=== PATIENT | female | born 1965 | race Caucasian/White ===

== ENCOUNTER → 2023-09-13 | Emergency (ER) | payer BC ==
[~2023-09-13] MED LIST: FAMOTIDINE 20 MG/2 ML VIAL IV ONE; KETOROLAC 30 MG/ML INJ ONE; NA CHLORIDE 0.9% 1,000 ML ONE; ONDANSETRON 4 MG/2 ML VIAL ONE
--- NOTE | 2023-09-13 17:29 | RAD REPORT ---
EXAM DESCRIPTION: US - Abdomen Exam Limited - 09/13/2023 5:06 pm CLINICAL HISTORY: ABD PAIN COMPARISON: No comparisons FINDINGS: The gallbladder demonstrates no gallstones. No pericholecystic fluid or gallbladder wall t hickening. The common bile duct is normal measuring 6 mm. The liver demonstrates no findings of intrahepatic biliary dilatation. IMPRESSION: Unremarkable examination.
[2023-09-13 17:41] LABS: Absolute Basophils 0.1 K/uL (0-0.5); Absolute Eosinophils 0.4 K/uL (0-0.5); Absolute Lymphocytes (CBC) 1.8 K/uL (0.7-4.9); Absolute Monocytes 0.6 K/uL (0.1-1.3); Absolute Neutrophil 3.6 K/uL (1.8-8.0); Basophils % 1.3 % (0-1.3); Eosinophils % 6.3 % (0-4.4); Hematocrit 35.2 % (36.0-45.0); Hemoglobin 12.1 g/dL (12.0-15.0); MCH 30.5 pg (27.0-35.0); MCHC 34.4 g/dL (32.0-36.0); MCV 88.6 fL (80-100); MPV 9.2 fL (7.6-11.3); Monocytes % 9.1 % (3.3-12.3); Neutrophils % 55.3 % (41.7-73.7); Nucleated Red Blood Cells % 0.1 % (0-0); Platelets 256 thou/uL (152-406); RBC Red Blood Cell Count 3.97 M/uL (3.86-4.86)
[2023-09-13 17:54] LABS: Albumin 3.6 g/dL (3.4-5.0); Anion Gap 11.4 mEq/L (5.0-15.0); Bilirubin Total 0.6 mg/dL (0.2-1.0); Globulin 3.5 g/dL (2.3-3.5); Potassium 3.4 mEq/L (3.5-5.1); Protein, Total 7.1 g/dL (6.4-8.2)
--- NOTE | 2023-09-13 18:46 | EDPHYS ---
Physician Documentation [facility] Name: Rosa Adan Age: 58 yrs Sex: Female : 1965 Arrival Date: 09/13/2023 Time: 16:14 Bed 16 Private MD: Herminia Torres ED Physician Live Doherty HPI: 09/12 20:07 This 58 yrs old Female presents to ER via Ambulatory with complaints of Abdominal Pain, kb Nausea. 20:07 Patient is a 58-year-old female who presents for right upper quadrant pain, diarrhea kb and nausea after eating for the last 2 weeks. Denies fever. States she has no pain at this time, it only comes on after eating.. Historical: - Allergies: 16:25 No Known Allergies; iw - PMHx: 16:25 Hypertensive disorder; Hypercholesterolemia; Asthma; iw - PSHx: 16:25 Gastric bypass; iw - Immunization history:: Adult Immunizations. - Social history:: Smoking status: Patient denies any tobacco usage or history of. ROS: 20:06 Constitutional: As per HPI kb Exam: 20:06 Constitutional: This is a well developed, well nourished patient who is awake, alert, kb and in no acute distress. Head/Face: Normocephalic, atraumatic. ENT: Moist Mucous membranes Cardiovascular: Regular rate Respiratory: Respirations even and unlabored. No increased work of breathing. Talking in full sentences Abdomen/GI: Soft, non-tender. No distention Skin: Warm, dry with normal turgor. Normal color. MS/ Extremity: Pulses equal, no cyanosis. Neurovascular intact. Full, normal range of motion. Neuro: Awake and alert, GCS 15, oriented to person, place, time, and situation. Moves all extremities. Normal gait. Vital Signs: 16:27 BP 155 / 92; Pulse 79; Resp 16; Temp 97.5; Pulse Ox 99% on R/A; Weight 79.38 kg; Pain iw 7/10; 17:30 BP 162 / 78; Pulse 71; Resp 16; Pulse Ox 100% on R/A; me1 18:15 BP 154 / 72; Pulse 62; Resp 16; Pulse Ox 100% on R/A; me1 18:56 BP 156 / 82; Pulse 61; Resp 16; Pulse Ox 100% on R/A; me1 16:27 Pain Scale: Adult iw MDM: 16:21 Patient medically screened. kb 20:06 Differential diagnosis: cholecystitis, Cholelithiasis, gastroesophageal reflux disease, kb non-specific abd pain, pancreatitis. Data reviewed: vital signs, nurses notes. Test considered but Not performed: CT: CT scan of the abdomen considered but patient has no abdominal tenderness, white blood cell count normal, afebrile, nontoxic in appearance. 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 09/12 16:25 Order name: CBC with Diff; Complete Time: 17:54 kb 09/12 16:25 Order name: CMP; Complete Time: 17:54 kb 09/12 16:25 Order name: Lipase; Complete Time: 17:54 kb 09/12 16:25 Order name: Abdomen Limited US; Complete Time: 17:30 kb 09/12 16:25 Order name: IV Saline Lock; Complete Time: 17:53 kb 09/12 16:25 Order name: Labs collected and sent; Complete Time: 17:20 kb Administered Medications: 17:52 Drug: NS 0.9% IV 1000 ml IV at 1 bolus Per protocol; 1000 mL bolus Route: IV; Rate: 1 me1 bolus; Site: right antecubital; 18:34 Follow up: Response: No adverse reaction; IV Status: Completed infusion; IV Intake: me1 1000ml 17:52 Drug: Famotidine IVP 20 mg IVP once; dilute with 10 mL 0.9% NaCl; give over 2 minutes me1 Route: IVP; Site: right antecubital; 18:34 Follow up: Response: No adverse reaction me1 17:52 Drug: TORadol - Ketorolac IVP 15 mg IVP once Route: IVP; Site: right antecubital; me1 18:35 Follow up: Response: No adverse reaction; Pain is decreased me1 17:52 Drug: Ondansetron IVP 4 mg IVP once; over 2 minutes Route: IVP; Site: right antecubital;me1 18:35 Follow up: Response: No adverse reaction; Nausea is decreased me1 Disposition Summary: 09/13/23 18:46 Discharge Ordered Notes: Location: Home kb Condition: Stable kb Diagnosis - Upper abdominal pain, unspecified kb Followup: kb - With: Emergency Department - When: As needed - Reason: Worsening of condition Followup: kb - With: Private Physician - When: 2 - 3 days - Reason: Recheck today's complaints, Continuance of care, Re-evaluation by your physician Discharge Instructions: - Discharge Summary Sheet kb - Biliary Colic, Adult kb - Abdominal Pain, Adult, [id number] kb Forms: - Medication Reconciliation Form kb - Thank You Letter kb - Antibiotic Education kb - Prescription Opioid Use kb - Patient Portal Instructions kb - Leadership Thank You Letter kb Prescriptions: - Zofran 4 mg Oral tablet - take 1 tablet ORAL route every 6 hours As needed; 20 tablet; Refills: 0, kb Product Selection Permitted - dicyclomine 20 mg Oral tablet - take 1 tablet ORAL route 4 times per day As needed; 20 tablet; Refills: 0, kb Product Selection Permitted Signatures: Dispatcher [employer] Valeria Chowdhury, PROFESSOR/NURSE ANESTHETIST-C PROFESSOR/NURSE ANESTHETIST-Lizet Winter, RN RN iw Jeanna Bhatti RN RN me1
--- NOTE | 2023-09-13 18:46 | ER ---
Nurse's Notes [facility] Name: Rsoa Adan Age: 58 yrs Sex: Female : 1965 Arrival Date: 09/13/2023 Time: 16:14 Bed 16 Private MD: Herminia Torres Diagnosis: Upper abdominal pain, unspecified Presentation: 09/12 16:24 Chief complaint: Patient states: abd pain, nausea, diarrhea after eating X 2 weeks. iw Coronavirus screen: At this time, the client does not indicate any symptoms associated with coronavirus-19. Ebola Screen: No symptoms or risks identified at this time. Initial Sepsis Screen: Does the patient meet any 2 criteria? No. Patient's initial sepsis screen is negative. Does the patient have a suspected source of infection? No. Patient's initial sepsis screen is negative. Risk Assessment: Do you want to hurt yourself or someone else? Patient reports no desire to harm self or others. 16:24 Method Of Arrival: Ambulatory iw 16:24 Acuity: YUNG 3 iw Historical: - Allergies: 16:25 No Known Allergies; iw - PMHx: 16:25 Hypertensive disorder; Hypercholesterolemia; Asthma; iw - PSHx: 16:25 Gastric bypass; iw - Immunization history:: Adult Immunizations. - Social history:: Smoking status: Patient denies any tobacco usage or history of. Screenin:[facility] ED Fall Risk Assessment (Adult) History of falling in the last 3 months, me1 including since admission No falls in past 3 months (0 pts) Confusion or Disorientation No (0 pts) Intoxicated or Sedated No (0 pts) Impaired Gait No (0 pts) Mobility Assist Device Used No (0 pt) Altered Elimination No (0 pt) Score/Fall Risk Level 0 - 2 = Low Risk Maintained a safe environment, Provided non-skid footwear, Hourly rounding (assess needs \T\ fall precautionary measures) done. Abuse screen: Denies threats or abuse. Nutritional screening: No deficits noted. Tuberculosis screening: No symptoms or risk factors identified. Assessment: 17:53 General: Appears comfortable, well groomed, well developed, well nourished, Behavior is me1 calm, cooperative, appropriate for age, Reports abd pain, nausea, diarrhea after eating X 2 weeks. 17:53 Pain: Denies pain. Complains of pain in right upper quadrant Pain radiates to back Pain me1 at worst was 8 out of 10 on a pain scale. Quality of pain is described as sharp, shooting, Pain began after eating. Neuro: Level of Consciousness is awake, alert, obeys commands, Oriented to person, place, time, situation, Appropriate for age. Cardiovascular: Patient's skin is warm and dry. Respiratory: Airway is patent Respiratory effort is even, unlabored, Respiratory pattern is regular, symmetrical. GI: Bowel sounds present X 4 quads. Abd is soft X 4 quads. : No deficits noted. Derm: Skin is intact, is healthy with good turgor, Skin is pink, warm \T\ dry. 18:00 Reassessment: Patient and/or family updated on plan of care and expected duration. Pain me1 level reassessed. Patient is alert, oriented x 3, equal unlabored respirations, skin warm/dry/pink. Patient states feeling better. Vital Signs: 16:27 BP 155 / 92; Pulse 79; Resp 16; Temp 97.5; Pulse Ox 99% on R/A; Weight 79.38 kg; Pain iw 7/10; 17:30 BP 162 / 78; Pulse 71; Resp 16; Pulse Ox 100% on R/A; me1 18:15 BP 154 / 72; Pulse 62; Resp 16; Pulse Ox 100% on R/A; me1 18:56 BP 156 / 82; Pulse 61; Resp 16; Pulse Ox 100% on R/A; me1 16:27 Pain Scale: Adult iw ED Course: 16:16 Patient arrived in ED. mr 16:17 Herminia Torres DO is Private Physician. mr 16:21 Val[facility] Chavez [facility]C [facility] kb 16:21 Live Doherty MD is Attending Physician. kb 16:24 Triage completed. iw 16:24 Arm band placed on. iw 16:59 Jeanna Bhatti, RN is Primary Nurse. me1 17:08 Abdomen Limited US In Process Unspecified. EDMS 17:20 CBC with Diff Sent. bc6 17:20 CMP Sent. bc6 17:20 Lipase Sent. bc6 17:20 Initial lab(s) drawn, by me, sent to lab. Missed attempt(s): 22 gauge in right bc6 antecubital area. 17:51 Inserted saline lock: 22 gauge in right antecubital area, using aseptic technique. me1 17:52 Client placed on continuous cardiac and pulse oximetry monitoring. NIBP monitoring me1 applied. Pulse ox on. NIBP on. 17:53 Patient has correct armband on for positive identification. Placed in gown. Bed in low me1 position. Call light in reach. Side rails up X 1. Provided Education on: POC. Verbalized understanding. . 17:53 No provider procedures requiring assistance completed. me1 19:03 IV discontinued, intact, bleeding controlled, No redness/swelling at site. Pressure me1 dressing applied. Administered Medications: 17:52 Drug: NS 0.9% IV 1000 ml IV at 1 bolus Per protocol; 1000 mL bolus Route: IV; Rate: 1 me1 bolus; Site: right antecubital; 18:34 Follow up: Response: No adverse reaction; IV Status: Completed infusion; IV Intake: me1 1000ml 17:52 Drug: Famotidine IVP 20 mg IVP once; dilute with 10 mL 0.9% NaCl; give over 2 minutes me1 Route: IVP; Site: right antecubital; 18:34 Follow up: Response: No adverse reaction me1 17:52 Drug: TORadol - Ketorolac IVP 15 mg IVP once Route: IVP; Site: right antecubital; me1 18:35 Follow up: Response: No adverse reaction; Pain is decreased me1 17:52 Drug: Ondansetron IVP 4 mg IVP once; over 2 minutes Route: IVP; Site: right antecubital;me1 18:35 Follow up: Response: No adverse reaction; Nausea is decreased me1 Medication: 17:53 VIS not applicable for this client. me1 Intake: 18:34 IV: 1000ml; Total: 1000ml. me1 Outcome: 18:46 Discharge ordered by MD. andrea 19:03 Discharged to home via ambulance, me1 19:03 Condition: stable 19:03 Discharge instructions given to patient, family, Instructed on discharge instructions, follow up and referral plans. medication usage, Demonstrated understanding of instructions, follow-up care, medications, 19:03 Patient left the ED. me1 Signatures: Dispatcher [employer] EDValeria Loaiza, MARV-C EQUIPMENT OPERAT0R-CkMare Arce, Reg Reg Lizet Kowalski, RN RN iw Francesca Ferrer bc6 Jeanna Bhatti, CRISTINA RN me1 Corrections: (The following items were deleted from the chart) 16:27 16:27 Pulse 79bpm; Resp 16bpm; Pulse Ox 99% RA; Temp 97.5F; iw iw 16:29 16:27 Pulse 79bpm; Resp 16bpm; Pulse Ox 99% RA; Temp 97.5F; 79.38 kg; Pain 710, Adult; iw iw 17:53 16:24 Chief complaint: Patient states: abd pain, nausea, diarrhea after eating X 2 me1 weeks iw 17:55 17:53 General: Appears comfortable, well groomed, well developed, well nourished, me1 Behavior is calm, cooperative, appropriate for age, Reports me1
[2023-09-13 19:22] VITALS: TEMP 97.5; O2SAT 100
[2023-09-13 19:51] VITALS: BP 156/82
== END ==
LOC: ER 16:14
DX: R10.11 Right upper quadrant pain (principal); I10 Essential (primary) hypertension
CPT/HCPCS: 96361; 85025; 36415; 83690; 80053; 76705; 96375; 96374; 99284; J2405; J7030

== ENCOUNTER 2023-09-19 21:32 | Emergency (ER) | payer BC ==
--- NOTE | 2023-09-19 22:40 | RAD REPORT ---
EXAM DESCRIPTION: Dannielle Single View09/19/2023 10:05 pm CLINICAL HISTORY: CHEST PAIN COMPARISON: 08/03/2012 TECHNIQUE: Portable AP view of the chest. FINDINGS: The lungs are clear. No pneumothorax or effusion. The cardiomediastinal contours are unre markable. IMPRESSION: No acute cardiopulmonary process.
[2023-09-19 22:57] LABS: Absolute Eosinophils 0.4 K/uL (0-0.5); Absolute Lymphocytes (CBC) 2.2 K/uL (0.7-4.9); Absolute Neutrophil 4.8 K/uL (1.8-8.0); Basophils % 0.2 % (0-1.3); Hematocrit 35.8 % (36.0-45.0); Hemoglobin 12.4 g/dL (12.0-15.0); Lymphocytes % 25.9 % (15.3-44.8); MCH 30.5 pg (27.0-35.0); MCHC 34.5 g/dL (32.0-36.0); MCV 88.3 fL (80-100); MPV 9.6 fL (7.6-11.3); Monocytes % 11.9 % (3.3-12.3); Nucleated Red Blood Cells % 0.1 % (0-0); Platelets 316 thou/uL (152-406); RBC Red Blood Cell Count 4.05 M/uL (3.86-4.86); Red Cell Distribution Width 16.2 % (12.1-15.2)
[2023-09-19 22:58] LABS: PT Prothrombin Time 12.3 SECONDS (9.5-12.5); Protime INR 1.12
[2023-09-19 23:12] LABS: Albumin 3.7 g/dL (3.4-5.0); Albumin/Globulin Ratio 1.1 (1.1-1.8); Bilirubin Direct 0.1 mg/dL (0-0.2); Bilirubin Indirect, Calculated 0.5 mg/dL (0.2-0.8); Bilirubin Total 0.6 mg/dL (0.2-1.0); Globulin 3.3 g/dL (2.3-3.5); Magnesium 1.7 mg/dL (1.6-2.4); Troponin High Sensitivity 12.6 pg/mL (<58.9)
[2023-09-19] MEDS ORDERED: ONDANSETRON 4 MG/2 ML VIAL ONE (23:31)
[2023-09-19] MEDS ORDERED: cloNIDine HCL 0.1 MG TAB ONE (23:31)
[2023-09-19] MEDS ORDERED: LORazepam 2 MG/ML VIAL ONE (23:31)
[2023-09-19] MEDS ORDERED: NA CHLORIDE 0.9% 1,000 ML ONE (23:32)
--- NOTE | 2023-09-20 01:49 | EDPHYS ---
Physician Documentation [facility] Name: Rosa Adan Age: 58 yrs Sex: Female : 1965 Arrival Date: 09/19/2023 Time: 21:32 Bed 5 Private MD: ED Physician Reji Zayas HPI: 09/18 21:46 This 58 yrs old Other Female presents to ER via Unassigned with complaints of High sp4 Blood Pressure. 09/19 01:20 58-year-old female presents with acute onset of elevated blood pressure also chest sp4 pressure. Patient states she had Chas-en-Y gastric bypass on July 23, 2023. Patient today felt dizzy unwell blood pressure at home was 200/100. Patient states she is having anxiety and also chest discomfort.. At home patient takes metoprolol tartrate 50 mg p.o. twice daily, but prior to arrival she took 75 mg. She also takes losartan 100 mg.. Historical: - Allergies: 09/18 22:12 No Known Allergies; jj7 - PMHx: 22:12 Asthma; Hypercholesterolemia; Hypertensive disorder; jj7 - PSHx: 22:12 Gastric Bypass; jj7 - Immunization history:: Client reports receiving the 2nd dose of the Covid vaccine, Flu vaccine is up to date. Client reports receiving the 2nd dose of the Covid vaccine, Flu vaccine is up to date. - Social history:: Smoking status: Reported history of juuling and/or vaping. Patient uses alcohol, occasionally. Patient/guardian denies using street drugs, IV drugs, Smoking status: Patient denies any tobacco usage or history of. Patient/guardian denies using alcohol, street drugs, IV drugs. - Family history:: not pertinent. ROS: 09/19 01:20 Constitutional: Negative for fever, chills, and weight loss, positive anxiety, positive sp4 chest pressure, positive vomiting, positive dizziness, Eyes: Negative for injury, pain, redness, and discharge, ENT: Negative for injury, pain, and discharge, All other systems are negative, Exam: 01:20 Constitutional: This is a well developed, well nourished patient who is awake, alert, sp4 and in no acute distress. Head/Face: Normocephalic, atraumatic. Eyes: Pupils equal round and reactive to light, extra-ocular motions intact. Lids and lashes normal. Conjunctiva and sclera are not injected. Cornea within normal limits. Periorbital areas with no swelling, redness, or edema. ENT: Nares patent. No nasal discharge, no septal abnormalities noted. Tympanic membranes are normal and external auditory canals are clear. Oropharynx with no redness, swelling, or masses, exudates, or evidence of obstruction, uvula midline. Mucous membranes moist. Neck: Trachea midline, no thyromegaly or masses palpated, and no cervical lymphadenopathy. Supple, full range of motion without nuchal rigidity, or vertebral point tenderness. Chest/axilla: Normal chest wall appearance and motion. Nontender with no deformity. No lesions are appreciated. Cardiovascular: Regular rate and rhythm with a normal S1 and S2. No gallops, murmurs, or rubs. Normal PMI, no JVD. No pulse deficits. Respiratory: Lungs have equal breath sounds bilaterally, clear to auscultation and percussion. No rales, rhonchi or wheezes noted. No increased work of breathing, no retractions or nasal flaring. Abdomen/GI: Soft, with normal bowel sounds. No distension or tympany. No guarding or rebound. No evidence of tenderness throughout. Back: No spinal tenderness. No costovertebral tenderness. Skin: Warm, dry with normal turgor. Normal color with no rashes, no lesions, and no evidence of cellulitis. MS/ Extremity: Pulses equal, no cyanosis. Neurovascular intact. Full, normal range of motion. Neuro: Awake and alert, GCS 15, oriented to person, place, time, and situation. Cranial nerves II-XII grossly intact. Motor strength 5/5 in all extremities. Sensory grossly intact. Psych: Awake, alert, with orientation to person, place and time. Behavior, mood, and affect are within normal limits 01:22 ECG was reviewed by the Attending Physician. EKG normal sinus rhythm at rate of 83 sp4 overall normal EKG Vital Signs: 09/18 22:19 BP 205 / 104; Pulse 73; Resp 18; Temp 98.2; Pulse Ox 99% ; Weight 79.38 kg; Height 5 jj7 ft. 2 in. ; 23:00 BP 199 / 104; Pulse 76; Resp 18 S; Pulse Ox 99% ; ha1 23:45 BP 187 / 88; Pulse 69; Resp 17 S; Pulse Ox 99% on R/A; ha1 09/19 00:13 BP 144 / 66; Pulse 57; Resp 18; Pulse Ox 95% on R/A; rv 00:44 BP 103 / 54; Pulse 56; Resp 17 S; Pulse Ox 96% on R/A; ha1 01:34 BP 130 / 69; Pulse 56; Resp 17 S; Pulse Ox 96% on R/A; ha1 09/18 22:19 Body Mass Index 32.01 (79.38 kg, 157.48 cm) jj7 Nivia Coma Score: 00:13 Eye Response: spontaneous(4). Motor Response: obeys commands(6). Verbal Response: rv oriented(5). Total: 15. 01:22 Eye Response: spontaneous(4). Motor Response: obeys commands(6). Verbal Response: sp4 oriented(5). Total: 15. MDM: 09/18 21:46 Patient medically screened. sp4 09/19 01:46 Differential diagnosis: hypertensive crisis, Malignant HTN, Anxiety attack. Data sp4 reviewed: vital signs, nurses notes, lab test result(s), EKG, radiologic studies, plain films. 01:46 Consideration of Admission/Observation Escalation of care including sp4 admission/observation considered. ED course: Patient has basically normal workup and normal EKG. Blood pressure has improved 130/69. Recommend as needed Ativan for anxiety attacks. Will advise follow-up with draw hand for medication adjustment for blood pressure control.. 09/18 21:46 Order name: Basic Metabolic Panel; Complete Time: 23:13 4 09/18 21:46 Order name: CBC with Diff; Complete Time: 23:05 sp4 09/18 21:46 Order name: LFT's; Complete Time: 23:13 sp4 09/18 21:46 Order name: Magnesium; Complete Time: 23:13 4 09/18 21:46 Order name: NT PRO-BNP; Complete Time: 23:13 sp4 09/18 21:46 Order name: PT-INR; Complete Time: 23:00 sp4 09/18 21:46 Order name: Troponin HS; Complete Time: 23:13 sp4 09/18 21:46 Order name: XRAY Chest (1 view); Complete Time: 23:00 sp4 09/18 23:12 Order name: US Abdomen Limited sp4 09/18 21:46 Order name: EKG; Complete Time: 21:47 sp4 09/18 21:46 Order name: Cardiac monitoring; Complete Time: 22:52 sp4 09/18 21:46 Order name: EKG - Nurse/Tech; Complete Time: 22:52 sp4 09/18 21:46 Order name: IV Saline Lock; Complete Time: :52 sp4 09/18 21:46 Order name: Labs collected and sent; Complete Time: :52 sp4 09/18 21:46 Order name: O2 Per Protocol; Complete Time: :52 sp4 09/18 21:46 Order name: O2 Sat Monitoring; Complete Time: :4 EC: Rate is 83 beats/min. Rhythm is regular, Normal Sinus Rhythm. QRS [place] is Normal. IN sp4 interval is normal. QRS interval is normal. QT interval is normal. No Q waves. T waves are Normal. No ST changes noted. Clinical impression: Normal ECG. Interpreted by me. Reviewed by me. Administered Medications: 09/18 23:30 Drug: NS 0.9% IV 1000 ml IV at 125 ml/hr continuous Route: IV; Rate: 125 ml/hr; Site: [facility] left antecubital; 09/19 02:08 Follow up: Response: No adverse reaction; IV Status: Completed infusion; IV Intake: ha1 500ml 09/18 23:31 Drug: Ondansetron IVP 4 mg IVP once; over 2 minutes Route: IVP; Site: left antecubital; 09/19 00:00 Follow up: Response: No adverse reaction; Marked relief of symptoms 09/18 23:33 Drug: cloNIDine PO 0.1 mg PO once Route: PO; 09/19 00:00 Follow up: Response: No adverse reaction; Marked relief of symptoms 09/18 23:35 Drug: Ativan IVP 2 mg IVP once Route: IVP; Site: left antecubital; 09/19 00:00 Follow up: Response: No adverse reaction; Marked relief of symptoms; Anxiety decreased 00:46 Not Given (Physician Discretion): clonidine0.2 mg PO once ha1 Disposition Summary: 09/20/23 01:48 Discharge Ordered Notes: Location: Home sp4 Problem: new sp4 Symptoms: have improved sp4 Condition: Stable sp4 Diagnosis - Essential (primary) hypertension sp4 - Acute hypertensive urgency, anxiety attack sp4 Followup: sp4 - With: Private Physician - When: 7 - 10 days - Reason: Recheck today's complaints Discharge Instructions: - Discharge Summary Sheet sp4 - Managing Your Hypertension sp4 Forms: - Patient Portal Instructions sp4 Prescriptions: - Ativan 1 mg Oral tablet - take 1 tablet ORAL route once daily As needed PRN anxiety; 25 tablet; Refills: sp4 0, Product Selection Permitted Signatures: Dispatcher [employer] EDShabana Flores RN RN ha1 Abrahan Huff RN RN jj7 Reji Zayas MD MD sp4
--- NOTE | 2023-09-20 01:49 | ER ---
Nurse's Notes [facility] Name: Rosa Adan Age: 58 yrs Sex: Female : 1965 Arrival Date: 09/19/2023 Time: 21:32 Bed 5 Private MD: Diagnosis: Essential (primary) hypertension;Acute hypertensive urgency, anxiety attack Presentation: 09/18 22:19 Chief complaint: Patient states: HAD GASTRIC BYPASS IN JUN AND HER BP MEDS HAVEN'T BEEN jj7 WORKING SINCE. HIGH BP. HER FINANCIAL INTERN CHANGED HER BP MEDS TODAY. STILL HAVING HIGH BP. CP. Coronavirus screen: At this time, the client does not indicate any symptoms associated with coronavirus-19. Ebola Screen: No symptoms or risks identified at this time. Initial Sepsis Screen: Does the patient meet any 2 criteria? No. Patient's initial sepsis screen is negative. Does the patient have a suspected source of infection? No. Patient's initial sepsis screen is negative. Risk Assessment: Do you want to hurt yourself or someone else? Patient reports no desire to harm self or others. 22:19 Method Of Arrival: Ambulatory [facility] 22:19 Acuity: YUNG 3 j7 09/19 00:13 Onset of symptoms was September 19, 2023. rv Triage Assessment: 09/18 22:12 General: Appears in no apparent distress. comfortable, Behavior is calm, cooperative, jj7 appropriate for age. Pain: Complains of pain in pelvis. : Reports burning with urination, pain with urination, urgency, urinary frequency. 22:22 General: Appears in no apparent distress. comfortable, Behavior is cooperative, jj7 appropriate for age, anxious. Cardiovascular: Reports HIGH BP. Historical: - Allergies: 22:12 No Known Allergies; jj7 - PMHx: 22:12 Asthma; Hypercholesterolemia; Hypertensive disorder; jj7 - PSHx: 22:12 Gastric Bypass; jj7 - Immunization history:: Client reports receiving the 2nd dose of the Covid vaccine, Flu vaccine is up to date. Client reports receiving the 2nd dose of the Covid vaccine, Flu vaccine is up to date. - Social history:: Smoking status: Reported history of juuling and/or vaping. Patient uses alcohol, occasionally. Patient/guardian denies using street drugs, IV drugs, Smoking status: Patient denies any tobacco usage or history of. Patient/guardian denies using alcohol, street drugs, IV drugs. - Family history:: not pertinent. Screenin:14 Abuse screen: Denies threats or abuse. Nutritional screening: No deficits noted. jj7 Tuberculosis screening: No symptoms or risk factors identified. 22:24 [facility] ED Fall Risk Assessment (Adult) History of falling in the last 3 months, jj7 including since admission No falls in past 3 months (0 pts). Assessment: 22:20 General: Appears in no apparent distress. comfortable, Behavior is cooperative, yb anxious. Pain: Complains of pain in left shoulder Pain radiates to left arm Pain at worst was 7 out of 10 on a pain scale. Quality of pain is described as aching, Pain began suddenly, Is intermittent. Neuro: Level of Consciousness is awake, alert, obeys commands, Oriented to person, place, time, situation. Cardiovascular: Reports None Capillary refill < 3 seconds Patient's skin is warm and dry. Rhythm is sinus rhythm Chest pain is denied. Respiratory: No deficits noted. Reports shortness of breath on exertion Airway is patent Respiratory effort is even, unlabored, Respiratory pattern is regular. Musculoskeletal: No deficits noted. Reports pain in left arm. 23:20 Reassessment: Patient and/or family updated on plan of care and expected duration. Pain ha1 level reassessed. Patient is alert, oriented x 3, equal unlabored respirations, skin warm/dry/pink. 09/19 00:40 Reassessment: Patient and/or family updated on plan of care and expected duration. Pain ha1 level reassessed. Patient is alert, oriented x 3, equal unlabored respirations, skin warm/dry/pink. Patient denies pain at this time. Patient states feeling better. Patient states symptoms have improved. 01:33 Reassessment: Patient and/or family updated on plan of care and expected duration. Pain ha1 level reassessed. Patient is alert, oriented x 3, equal unlabored respirations, skin warm/dry/pink. 02:07 Reassessment: Patient and/or family updated on plan of care and expected duration. Pain ha1 level reassessed. Patient is alert, oriented x 3, equal unlabored respirations, skin warm/dry/pink. Patient denies pain at this time. Patient states feeling better. Patient states symptoms have improved. Vital Signs: 09/18 22:19 BP 205 / 104; Pulse 73; Resp 18; Temp 98.2; Pulse Ox 99% ; Weight 79.38 kg; Height 5 jj7 ft. 2 in. ; 23:00 BP 199 / 104; Pulse 76; Resp 18 S; Pulse Ox 99% ; ha1 23:45 BP 187 / 88; Pulse 69; Resp 17 S; Pulse Ox 99% on R/A; ha1 09/19 00:13 BP 144 / 66; Pulse 57; Resp 18; Pulse Ox 95% on R/A; rv 00:44 BP 103 / 54; Pulse 56; Resp 17 S; Pulse Ox 96% on R/A; ha1 01:34 BP 130 / 69; Pulse 56; Resp 17 S; Pulse Ox 96% on R/A; ha1 09/18 22:19 Body Mass Index 32.01 (79.38 kg, 157.48 cm) jj7 Nivia Coma Score: 00:13 Eye Response: spontaneous(4). Motor Response: obeys commands(6). Verbal Response: rv oriented(5). Total: 15. 01:22 Eye Response: spontaneous(4). Motor Response: obeys commands(6). Verbal Response: sp4 oriented(5). Total: 15. ED Course: 09/18 21:34 Patient arrived in ED. rg4 21:46 Reji Zayas MD is Attending Physician. sp4 22:07 XRAY Chest (1 view) In Process Unspecified. EDMS 22:12 Triage completed. jj7 22:20 Inserted saline lock: 20 gauge in left antecubital area, using aseptic technique. Blood yb collected. 22:22 Arm band placed on right wrist. jj7 22:24 Patient has correct armband on for positive identification. Adult w/ patient. jj7 09/19 00:07 US Abdomen Limited In Process Unspecified. EDMS 00:13 No provider procedures requiring assistance completed. rv 02:07 Provided Education on: medication administration . ha1 02:07 IV discontinued, intact, bleeding controlled, No redness/swelling at site. Pressure ha1 dressing applied. Administered Medications: 09/18 23:30 Drug: NS 0.9% IV 1000 ml IV at 125 ml/hr continuous Route: IV; Rate: 125 ml/hr; Site: ha1 left antecubital; 09/19 02:08 Follow up: Response: No adverse reaction; IV Status: Completed infusion; IV Intake: ha1 500ml 09/18 23:31 Drug: Ondansetron IVP 4 mg IVP once; over 2 minutes Route: IVP; Site: left antecubital; 1 09/19 00:00 Follow up: Response: No adverse reaction; Marked relief of symptoms ha1 09/18 23:33 Drug: cloNIDine PO 0.1 mg PO once Route: PO; ha1 09/19 00:00 Follow up: Response: No adverse reaction; Marked relief of symptoms ha1 09/18 23:35 Drug: Ativan IVP 2 mg IVP once Route: IVP; Site: left antecubital; 1 09/19 00:00 Follow up: Response: No adverse reaction; Marked relief of symptoms; Anxiety decreased ha1 00:46 Not Given (Physician Discretion): clonidine0.2 mg PO once ha1 Medication: 00:13 VIS not applicable for this client. rv Intake: 02:08 IV: 500ml; Total: 500ml. ha1 Outcome: 01:48 Discharge ordered by . sp4 02:06 Discharged to home ambulatory, with family, 1 02:06 Condition: stable 02:06 Discharge instructions given to patient, family, Instructed on discharge instructions, follow up and referral plans. medication usage, Demonstrated understanding of instructions, follow-up care, medications, Prescriptions given X 1, 02:09 Patient left the ED. ha1 Signatures: Dispatcher [employer] EDPR Chantel Erickson 4 Freeman Coyle RN RN rv Ayala, Heidy, RN RN ha1 Abrahan Huff RN RN jj7 Potepalov, Sergey, MD MD sp4 Brown, Yolanda, RN RN yb Corrections: (The following items were deleted from the chart) 09/18 22:21 22:10 Chief complaint: Patient states: DX WITH UTI LAST WEEK. FIRST ANTIBIOTIC DIDN'T jj7 WORK. STARTED ON NEW ANTIBIOTIC YESTERDAY AND IS FEELING BACK. HAVING FEVER AND NAUSEA TODAY jj7 22:21 22:10 Coronavirus screen: At this time, the client does not indicate any symptoms jj7 associated with coronavirus-19. jj7 22:21 22:10 Ebola Screen: No symptoms or risks identified at this time. [facility] j 22: 22:10 Initial Sepsis Screen: Does the patient meet any 2 criteria? HR > 90 bpm. Yes [facility] Does the patient have a suspected source of infection? No. Patient's initial sepsis screen is negative. [facility] : 22:10 Risk Assessment: Do you want to hurt yourself or someone else? Patient reports no [facility] desire to harm self or others. [facility] : 22:10 Method Of Arrival: Ambulatory [place] [id number] 22:21 22:10 BP 115 / 97; Pulse 103bpm; Resp 20bpm; Pulse Ox 100%; Temp 98.6F; 117.93 kg; [facility] Height 5 ft. 2 in.; BMI: 47.5; Pain 5/10, Adult; [facility] : 22:10 Acuity: YUNG 3 [place] [id number] 22:23 22:12 Arm band placed on right wrist. [place] [id number] 22:23 22:14 Patient has correct armband on for positive identification. Adult w/ patient. [place] [id number] 22:23 22:14 Provided Education on: LAB TESTING. [facility] j 22:24 22:14 [facility] ED Fall Risk Assessment (Adult) History of falling in the last 3 months, [facility] including since admission No falls in past 3 months (0 pts) [facility] 09/19 00:45 09/18 23:33 cloNIDine PO 0.2 mg PO ha1 ha1
[2023-09-20 02:32] VITALS: TEMP 98.2
[2023-09-20 02:57] VITALS: BP 130/69; O2SAT 96
--- NOTE | 2023-09-20 11:51 | EKG ---
Test Date: 2023-09-19 Test Time: 22:22:27 Ramp Manager: JOEY MEASUREMENT RESULTS: Intervals: Rate: 83 AL: 160 QRSD: 80 QT: 416 QTc: 488 [place]: P: 39 AL: 160 QRS: 42 T: 50 INTERPRETIVE STATEMENTS: Normal sinus rhythm Anterior infarct, age undetermined Abnormal ECG Compared to ECG 08/04/2012 00:14:49 Myocardial infarct finding now present Sinus arrhythmia no longer present Electronically Signed On 09-20-23 11:48:47 CDT by Simón Conde
--- NOTE | 2023-09-20 17:17 | RAD REPORT ---
EXAM DESCRIPTION: Abdomen Exam Limited [employer]Lex: US ABDOMEN LIMITED CLINICAL HISTORY: ABD PAIN. COMPARISON: Report only for a right upper quadrant ultrasound from September 13, 2023. TECHNIQUE: Ultrasound of the gallbladder with Doppler flow imaging was obtained. FINDINGS: Gallbladder: Small amount of gallbladder sludge. No cholelithiasis or gallbladder wall thi ckening. Sonographic Plummer's sign was not reported by the technologist. Bile ducts: No dilatation of the intrahepatic bile ducts. The common bile duct measures 0.4 cm in stanley meter at the fam hepatis. The liver and right kidney are partially imaged and not fully assessed on this focused exam. IMPRESSION: 1. No cholelithiasis or acute findings. 2. Small amount of gallbladder sludge. Electronically signed by: Jeannette Lou MD 09/20/2023 12:29 AM CDT Due to temporary technical issues with the PACS/Fluency reporting system, reports are being signed by the in house radiologists without review as a courtesy to insure prompt reporting. The interpreting radiologist is fully responsible for the content of the report.
== END 2023-09-20 02:09 | disposition home or self-care (01) ==
LOC: ER 21:32
DX: I16.0 Hypertensive urgency (principal); F41.0 Panic disorder [episodic paroxysmal anxiety]; I10 Essential (primary) hypertension; Z98.84 Bariatric surgery status
CPT/HCPCS: 96361; 93005; 85025; 80048; 36415; 83735; 85610; 80076; 84484; 83880; 71045; 76705; 96375; 96374; 99284; J2405; J7030

== ENCOUNTER 2023-10-09 06:43 | Day surgery (SDC) | payer BC ==
[2023-10-09] MEDS: Ringers Lactate 1,000 ML IV ONE (07:10)
[2023-10-09] MEDS ORDERED: propofoL 200 MG/20 ML VIAL IV ONE (08:13)
[2023-10-09] MEDS ORDERED: LIDOCAINE 1% MPF 5 ML VIAL ONE (08:13)
[2023-10-09] MEDS ORDERED: FENTANYL CITR 100 MCG/2 ML ONE (08:13)
[2023-10-09] MEDS ORDERED: ONDANSETRON 4 MG/2 ML VIAL ONE (08:13)
[2023-10-09] MEDS ORDERED: ROCURONIUM 50 MG/5 ML VIAL IV ONE (08:13)
[2023-10-09] MEDS ORDERED: MIDAZOLAM HCL 2 MG/2 ML INJ ONE (08:14)
[2023-10-09 08:23] LABS: Albumin/Globulin Ratio 1.1 (1.1-1.8); Bilirubin Direct 0.1 mg/dL (0-0.2); Bilirubin Indirect, Calculated 0.3 mg/dL (0.2-0.8); Bilirubin Total 0.4 mg/dL (0.2-1.0); Globulin 2.8 g/dL (2.3-3.5); Protein, Total 5.8 g/dL (6.4-8.2)
[2023-10-09] MEDS: CEFOXITIN SODIUM 1 GM/VIAL ONE (08:40)
[2023-10-09] MEDS ORDERED: KETOROLAC 30 MG/ML INJ ONE (08:58)
--- NOTE | 2023-10-09 09:48 | P.BOP ---
Preoperative diagnosis: RUQ abd pain, biliary dyskinesia Postoperative diagnosis: same Primary procedure: Laparoscopic cholecystectomy Estimated blood loss: <10cc Specimen: gb Findings: as above Anesthesia: General Complications: None Transferred to: Recovery Room Condition: Good
[2023-10-09] MEDS: HYDROMORPHONE HCL 1 MG/ML INJ ONE (09:55)
[2023-10-09] MEDS: CODEINE 30MG/APAP 300MG TAB ONE (10:45)
[2023-10-09 11:13] VITALS: BP 155/74; TEMP 97.2; O2SAT 100
== END 2023-10-09 11:30 | disposition home or self-care (01) ==
LOC: DS 06:43
PROVIDERS: ATTEND Surgery
PROC: 0FT44ZZ Resection of Gallbladder, Percutaneous Endoscopic Approach (ICD-10-PCS; principal; 2023-10-09 08:45)
DX: K81.1 Chronic cholecystitis (principal); K82.8 Other specified diseases of gallbladder; F41.9 Anxiety disorder, unspecified; I10 Essential (primary) hypertension; J45.909 Unspecified asthma, uncomplicated; E78.00 Pure hypercholesterolemia, unspecified; E78.5 Hyperlipidemia, unspecified; K21.9 Gastro-esophageal reflux disease without esophagitis
CPT/HCPCS: 36415; 84132; 80076; 88304; 83690; 47562; J2704; J2001; J2250; J3010; J1170; J0694; J2405; J7120